=== PATIENT | male | born 1940 | race Caucasian/White ===

== ENCOUNTER 2017-02-08 11:27 | Emergency (ER) | payer MEDICARE, OTHER ==
[~2017-02-08] VITALS: Ht 188 cm; Wt 97.0 kg
[~2017-02-08 11:27] MED LIST: COUM1TAB PO; DIGO0.12 PO; GLUCTAB PO; MECL25CH PO; TOPR25TA2 PO; ZOFR4TAB3 SL
[2017-02-08 11:32] VITALS: BP 133/63; PULSE 98; RESP 16; TEMP 98.5; O2SAT 96
--- NOTE | 2017-02-08 11:53 | PD ---
HPI Chief Complaint: Musculoskeletal Complaint Time Seen by Provider: 11:45 Travel History International Travel<30 days: No Contact w/Intl Traveler<30days: No Traveled to known affect area: No History of Present Illness HPI 76-year-old male says he fell on Wednesday. He landed on his buttocks and has had pain and swelling of his right buttock. He does take Coumadin. He has been able to walk on the leg. He did hit his head but did not lose consciousness and is not having headache. He is not sure of his dose of Coumadin but he takes 1 pill alternating with half a pill daily [facility] Past Medical History Hx Anticoagulant Therapy: Yes (WARFARIN) Asthma: No Atrial Fibrillation: Yes Autoimmune Disease: No COPD: No Coronary Artery Disease: Yes Diabetes: Yes Diminished Hearing: No Hypertension: Yes Past Surgical History Other Surgery: Yes (turp) Social History Alcohol Use: No Tobacco Use: No Substance Use: No Allergies-Medications (Allergen,Severity, Reaction): Coded Allergies: No Known Allergies (Verified , 02/08/17) Reported Meds & Prescriptions Reported Meds & Active Scripts Active Reported Coumadin (Warfarin) 1 Mg Tab 1 Mg PO DAILY Metformin (Metformin HCl) 500 Mg Tab 500 Mg PO BIDPC With meals Digoxin 0.125 Mg Tab 0.125 Mg PO DAILY Review of Systems General / Constitutional: No: Fever, Chills Eyes: No: Diploplia, Blurred Vision HENT: No: Headaches, Vertigo Cardiovascular: No: Chest Pain or Discomfort, Palpitations Respiratory: No: Cough, Shortness of Breath Physical Exam Narrative GENERAL: Well-developed male SKIN: Focused skin assessment warm/dry. HEAD: Atraumatic. Normocephalic. EYES: Pupils equal and round. No scleral icterus. No injection or drainage. ENT: No nasal bleeding or discharge. Mucous membranes pink and moist. NECK: Trachea midline. No JVD. CARDIOVASCULAR: Irregular rate and rhythm. No murmur appreciated. RESPIRATORY: No accessory muscle use. Clear to auscultation. Breath sounds equal bilaterally. GASTROINTESTINAL: Abdomen soft, non-tender, nondistended. Hepatic and splenic margins not palpable. MUSCULOSKELETAL: No obvious deformities. No clubbing. No cyanosis. No edema. Her is ecchymosis and swelling of his right buttock. He has good range of motion at the right hip without much discomfort NEUROLOGICAL: Awake and alert. No obvious cranial nerve deficits. Motor grossly within normal limits. Normal speech. PSYCHIATRIC: Appropriate mood and affect; insight and judgment normal. Data Data Last Documented VS Vital Signs Date Time Temp Pulse Resp B/P (MAP) Pulse Ox O2 Delivery O2 Flow Rate FiO2 02/08/17 11:32 98.5 98 16 133/63 (86) 96 Orders Orders Complete Blood Count With Diff (02/08/17 11:49) Prothrombin Time / Inr (Pt) (02/08/17 11:49) Hip, Uni(Ap&Lat) W Ap Pelvis (02/08/17 11:49) Labs Laboratory Tests Test 02/08/17 12:05 White Blood Count 12.4 TH/MM3 Red Blood Count 4.21 MIL/MM3 Hemoglobin 12.1 GM/DL Hematocrit 36.4 % Mean Corpuscular Volume 86.6 FL Mean Corpuscular Hemoglobin 28.6 PG Mean Corpuscular Hemoglobin Concent 33.1 % Red Cell Distribution Width 15.4 % Platelet Count 227 TH/MM3 Mean Platelet Volume 8.6 FL Neutrophils (%) (Auto) 76.6 % Lymphocytes (%) (Auto) 10.9 % Monocytes (%) (Auto) 10.9 % Eosinophils (%) (Auto) 1.0 % Basophils (%) (Auto) 0.6 % Neutrophils # (Auto) 9.4 TH/MM3 Lymphocytes # (Auto) 1.4 TH/MM3 Monocytes # (Auto) 1.4 TH/MM3 Eosinophils # (Auto) 0.1 TH/MM3 Basophils # (Auto) 0.1 TH/MM3 CBC Comment AUTO DIFF Differential Comment AUTO DIFF CONFIRMED Toxic Granulation 1+ Platelet Estimate NORMAL Platelet Morphology Comment NORMAL Prothrombin Time 43.6 SEC Prothromb Time International Ratio 3.7 [facility]ATIO [facility] Medical Decision Making Medical Screen Exam Complete: Yes Emergency Medical Condition: Yes Medical Record Reviewed: Yes Differential Diagnosis Differential includes contusion buttock, COAGULOPATHY, fracture Narrative Course X-ray of the hip is negative. INR is 3.7. Patient has a contusion of the buttock is probably aggravated by his coagulopathy. We'll recommend that he hold his Coumadin today and then take half a tablet daily. Diagnosis Primary Impression: Contusion of buttock Qualified Codes: S30.0XXA - Contusion of lower back and pelvis, initial encounter Additional Instructions: Do not take Coumadin today, then take half tablet daily. Follow up with Dr. Garduno. Disposition: 01 DISCHARGE HOME Condition: Stable Warren Saucedo MD Feb 08, 2017 11:53
[2017-02-08] MEDS ORDERED: METF500T PO (12:06)
[2017-02-08] MEDS ORDERED: DIGO0.12 PO (12:06)
[2017-02-08] MEDS ORDERED: COUM1TAB PO (12:06)
[2017-02-08 12:15] LABS: AUTOMATED NEUTROPHIL # 9.4 TH/MM3 (1.8-7.7); BASOPHIL # 0.1 TH/MM3 (0-0.2); BASOPHIL % 0.6 % (0.0-2.0); EOSINOPHIL # 0.1 TH/MM3 (0-0.4); HEMATOCRIT 36.4 % (39.0-51.0); LYMPH % 10.9 % (9.0-44.0); LYMPHOCYTE # 1.4 TH/MM3 (1.0-4.8); MEAN CELL VOLUME 86.6 FL (80.0-100.0); MEAN CORPUSCULAR HEMOGLOBIN 28.6 PG (27.0-34.0); MEAN CORPUSCULAR HGB CONC 33.1 % (32.0-36.0); MONO % 10.9 % (0.0-8.0); NEUT % 76.6 % (16.0-70.0); PLATELET COUNT 227 TH/MM3 (150-450); RED BLOOD COUNT 4.21 MIL/MM3 (4.50-5.90); RED CELL DISTRIBUTION WIDTH 15.4 % (11.6-17.2); WHITE BLOOD COUNT 12.4 TH/MM3 (4.0-11.0)
[2017-02-08 12:29] LABS: HEMO FLAGS AUTO DIFF
[2017-02-08 12:33] LABS: INTERNATIONAL NORMALIZED RATIO 3.7 RATIO; PROTHROMBIN TIME - PATIENT 43.6 SEC (9.8-11.6)
[2017-02-08 12:58] LABS: PLATELET ESTIMATE SMEAR NORMAL (NORMAL); PLATELET MORPHOLOGY NORMAL (NORMAL); SCAN/DIFF AUTO DIFF CONFIRMED; TOXIC GRANULATION 1+ (NORMAL)
--- NOTE | 2017-02-08 13:10 | RADRPT ---
EXAM DATE/TIME: 02/08/2017 12:17 [place] COMPARISON: No previous studies available for comparison. INDICATIONS : Right hip pain after falling MEDICAL HISTORY : None. SURGICAL HISTORY : None. ENCOUNTER: Initial ACUITY: 2 days PAIN SCORE: 8/10 LOCATION: Right posterior hip FINDINGS: Examination of the right hip was performed with AP Pelvis. The primary and secondary trabecular juliet héctor of the femoral neck is intact. The hip joint is of normal width without significant sclerosis or bony hypertrophy. The acetabulum is grossly intact. CONCLUSION: Negative. The patient remains symptomatic CT scan may be of benefit. Teofilo Marie MD FACR on February 08, 2017 at 13:08 Board Certified Radiologist. This report was verified electronically.
== END 2017-02-08 13:43 | disposition home or self-care (01) ==
LOC: PHED 11:27
DX: S30.0XXA Contusion of lower back and pelvis, initial encounter (principal); W19.XXXA Unspecified fall, initial encounter
CPT/HCPCS: 73502; 85025; 85610; 99284